=== PATIENT | female | born 1960 | race Caucasian/White ===

== ENCOUNTER 2018-01-03 15:08 | Outpatient (REF) | payer OTHER, SELFPAY ==
--- NOTE | 2018-01-03 15:00 | PAPFT_PTH ---
PATIENT: Shanna Etienne LOC: [place] U#:[id number] AGE/SX: 57/F ROOM: RE01/03/[address]: Dianna Lock : 1960 BED: DIS: 01/03/2018 SPEC #: [id number] RECD: 01/03/18 18:03 STATUS: CITLALI MORALES #: [id number] JENNIFER: 01/03/18 15:[address]: Dianna Lock DEPT: [facility] Cytology RECD BY: Talita Wynne ENTERED: 01/03/18 18:03 SP TYPE: PAPFT OTHR DR: Heather Tam Tissues: 1 - CX/ENDOCX FOR PAP SMEARS Procedures: PAP THIN PREP/[facility] Screening HPV DNA PROBE Comments: [id number]
== END 2018-01-03 15:28 ==
LOC: LBN 15:08
PROVIDERS: PCP Obstetrics & Gynecology; Visit Provider Obstetrics & Gynecology Gynecology
DX: Z12.4 Encounter for screening for malignant neoplasm of cervix (principal); Z11.51 Encounter for screening for human papillomavirus (HPV)
CPT/HCPCS: 88142; 87624

== ENCOUNTER 2023-12-31 11:20 | Outpatient (REF) | payer MEDICARE, OTHER, SELFPAY ==
--- NOTE | 2023-12-31 08:45 | PAPFT_PTH ---
PATIENT: Shanna Etienne LOC: [facility] U#:[id number] AGE/SX: 63/F ROOM: RE12/31/[address]: Dianna Lock : 1960 BED: DIS: 12/31/2023 SPEC #: [id number] RECD: 12/31/23 13:23 STATUS: CITLALI REQ #: [id number] JENNIFER: 12/31/23 08:[address]: Dianna Lock DEPT: [facility] Cytology RECD BY: Talita Wynne ENTERED: 12/31/23 13:23 SP TYPE: PAPFT OTHR DR: Heather Tam Tissues: 1 - CX/ENDOCX FOR PAP SMEARS Procedures: PAP THIN PREP/UVM Screening HPV DNA PROBE Comments: [id number] (HPV 16 & 18/45)
== END 2023-12-31 11:21 | disposition home or self-care (01) ==
LOC: LBN 11:20
PROVIDERS: PCP Obstetrics & Gynecology; Visit Provider Obstetrics & Gynecology Gynecology
DX: Z12.4 Encounter for screening for malignant neoplasm of cervix (principal)
CPT/HCPCS: 88142; 87624

== ENCOUNTER 2024-08-22 02:30 | Outpatient (CLI) | payer MEDICARE, OTHER, SELFPAY ==
[2024-08-22 09:40] LABS: Abs Immature Grans 0.02 10^3/uL (0.0-0.06); Absolute Basophil Count 0.03 10^3/uL (0.0-0.2); Absolute Eosinophil Count 0.19 10^3/uL (0.0-0.7); Absolute Lymphocyte Count 2.17 10^3/uL (1.2-3.4); Absolute Monocyte Count 0.64 10^3/uL (0.1-0.8); Absolute Neutrophil Count 3.16 10^3/uL (1.2-6.7); Basophils % 0.5 %; Eosinophils % 3.1 %; HCT 42.9 % (36.0-46.0); HGB 14.2 g/dL (11.2-15.7); Immature Grans % 0.3 %; Lymphocytes % 34.9 %; MCH 31.4 pg (27.0-33.0); MCHC 33.1 % (32.0-36.0); MCV 95 fL (80-95); MPV 9.1 fL (8.0-11.0); Monocytes % 10.3 %; Neutrophils % 50.9 %; Platelet Count 249 10^3/uL (130-400); RBC 4.52 10^6/uL (3.93-5.22); RDW 12.5 % (11.7-14.6); RDW-SD 43.6 fL; WBC 6.21 10^3/uL (4.4-10.8)
== END 2024-08-22 02:31 | disposition home or self-care (01) ==
LOC: LBO 02:30
PROVIDERS: PCP Family Medicine; Visit Provider Obstetrics & Gynecology
DX: Z01.818 Encounter for other preprocedural examination (principal)
CPT/HCPCS: 36415; 86850; 86900; 86901; 85025

== ENCOUNTER 2024-08-23 08:50 | Day surgery (SDC) | payer MEDICARE, OTHER, SELFPAY ==
[2024-08-23 09:06] VITALS: BP 125/57; PULSE 58; RESP 16; TEMP 36.2; O2SAT 98
[2024-08-23] MEDS: Lactated Ringers 1,000 ML 125 ML IV (09:22)
--- NOTE | 2024-08-23 10:11 | NUR.NOTE ---
Nursing Note: 1010: This nurse (Joselo Gilliland RN) checked on patient as she had been waiting to go over to the OR for awhile, patient appears to be sleeping, respirations WNL. Call zayas is at bedside.
--- NOTE | 2024-08-23 10:49 | W.ANESPRE ---
General Info Date of Service Date Performed: 08/23/24 Height: 5 ft 7 in Weight: 62.3 kg Body Mass Index (BMI): 21.4 Surgical Procedure: Operation Date: 08/23/24 11:40 Proposed Procedure Side Surgeon p Dilation & Curettage with Hysteroscopy, Exam Under Anesthesia, Cervical Biopsies Ora Florez DO Meds Allergies and Home Medications Allergies Allergy/AdvReac Type Severity Reaction Status Date / Time Iodinated Contrast Media Allergy Severe Anaphylaxis Verified 08/23/24 09:11 Home Medication ?Medication ?Instructions ?Recorded multivitamin (Daily Multi-Vitamin 1 ea PO DAILY 02/06/13 tablet) psyllium husk 0.52 gram capsule 0.52 gm PO DAILY 02/06/13 cholecalciferol (vitamin D3) 125 5,000 unit PO DAILY 07/31/13 mcg (5,000 unit) tablet ascorbic acid (vitamin C) 500 mg 500 mg PO DAILY 05/10/17 tablet (Vitamin C) calcium ER 600 mg (as carb,cit)-D3 1 ea PO DAILY 05/10/17 12.5 mcg (500 unit) tablet, ext.rel Current Visit Medications: Current Medications Generic Name Dose Route Start Last Admin Trade Name Freq PRN Reason Stop Dose Admin Ringer's Solution 1,000 mls @ 125 mls/hr 08/23/24 06:00 08/23/24 09:22 IV 08/23/24 23:59 125 mls/hr INFUSION ASHUTOSH Administration IV Miscellaneous Supplies 1 each 08/23/24 06:00 Iv Access IV 08/23/24 23:59 DIRECTED ASHUTOSH Sodium Chloride 0 ml 08/23/24 06:00 Normal Saline Flush 10 Ml Syr IV 08/23/24 23:59 PRN PRN Sodium Chloride 0 ml 08/23/24 06:00 Normal Saline 10 Ml Vial IJ 08/23/24 23:59 DIRECTED PRN Sterile Water 0 ml 08/23/24 06:00 Water,Injection,Sterile 10 Ml Vial IJ 08/23/24 23:59 DIRECTED PRN PFSH Active Problems Active Problems: Problem Status Onset Code Abnormal ultrasound Acute R93.89 HPV (human papilloma virus) infection Acute B97.7 Postmenopausal vaginal bleeding Acute 07/03/15 N95.0 WILMAR III (cervical intraepithelial neoplasia grade III) with severe dysplasia Acute 07/06/16 D06.9 WILMAR III (cervical intraepithelial neoplasia III) Acute 04/05/13 D06.9 Atrophy of vagina Acute 07/03/15 N95.2 Medical History Medical History Hx of abnormal cervical Pap smear 2014 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 Nl paps/HPV since. Reactive airways dysfunction syndrome Osteopenia Palpitations Pt. denies this Surgical History Surgical History S/P LEEP (loop electrosurgical excision procedure) 2014. CIN3. nl paps\HPV since. Tobacco Smoking/Tobacco Use Status: Never Passive smoking exposure: No Alcohol Alcohol Intake: never Details: Rare social alcohol Substance Use Substance use: Never Substance use type: does not use Prental History History 4 Para 3 Hx # Term Pregnancies Multiple births Hx # Pregnancies Ectopic pregnancies AB induced Hx Number of Living Children 3 AB spontaneous 1 Vital Signs and Lab Results Vital Signs Most Recent Vital Signs in EMR: Most Recent Vital Signs Temp Pulse Resp BP Pulse Ox 36.2 C L 58 L 16 125/57 L 98 08/23/24 09:06 08/23/24 09:06 08/23/24 09:06 08/23/24 09:06 08/23/24 09:06 Lab Results Blood Type / Crossmatch: Antibody Screen NEGATIVE 08/22/24 Complete Blood Count: White Blood Count 6.21 10^3/uL (4.4-10.8) 08/22/24 08:50 Red Blood Count 4.52 10^6/uL (3.93-5.22) 08/22/24 08:50 Hemoglobin 14.2 g/dL (11.2-15.7) 08/22/24 08:50 Hematocrit 42.9 % (36.0-46.0) 08/22/24 08:50 Platelet Count 249 10^3/uL (130-400) 08/22/24 08:50 Complete Metabolic Panel: No Data to Display Liver Function Panel: No Data to Display Coagulation Panel: No Data to Display Cardiac Panel: No Data to Display Arterial Blood Gas: No Data to Display Venous Blood Gas: No Data to Display Pancreas Panel: No Data to Display Thyroid Panel: No Data to Display Infectious Disease: No Data to Display Blood Cultures: No Data to Display Toxicology Panel: No Data to Display Anesthesia Assessment and Plan Anesthesia History Personal History: No History of Anesthesia Complications Family History: No Family History of Anesthesia Complications Exercise Tolerance Exercise Tolerance: Metabolic Equivalents>4 Pertinent Negatives Pertinent Negatives: No Symptoms of GERD, No Major Cardiovascular Symptoms or Complaints and No Major Pulmonary Symptoms or Complaints Cardiac & Pulmonary Exam Cardiac Exam: Normal S1/S2 Heart Sounds Pulmonary Exam: Clear Bilateral Breath Sounds Implantable Cardiac Device Does patient have a Pacemaker or an ICD?: No Airway Exam Known Difficult Airway: No Mallampati Class: 2 Mouth Opening: Normal (> 3cm) Thyromental Distance: Greater than 3 cm Neck Range of Motion: Full ROM Neck Circumference: Normal Teeth Condition: Normal Dentition ASA Classification ASA Score: ASA 2 Emergency Case?: No NPO Status NPO Status: NPO Clears >2 hours, Solids >8 hours Anesthesia Plan Resuscitation Status: Full Code Anesthesia Technique: General Anesthesia Airway Planned: Natural Airway Monitors Used: Standard Monitors
[2024-08-23 11:14] VITALS: BMI 21.4
--- NOTE | 2024-08-23 11:30 | PAPFT_PTH ---
PATIENT: Shanna Etienne LOC: [facility] U#:[id number] AGE/SX: 64/F ROOM: RE08/23/[address]: Ora Florez DO : 1960 BED: DIS: 08/23/2024 SPEC #: [id number] RECD: 08/23/24 13:06 STATUS: CITLALI REQ #: [id number] JENNIFER: 08/23/24 11:[address]: Ora Florez DEPT: [facility] Cytology RECD BY: Talita Wynne ENTERED: 08/23/24 13:06 SP TYPE: PAPFT OTHR DR: Liz Pickard Tissues: 1 - CX/ENDOCX FOR PAP SMEARS Procedures: PAP THIN PREP/UVM Screening HPV DNA PROBE Comments: [id number] (HPV 16 & 18/45)
--- NOTE | 2024-08-23 12:03 | ENDO_PTH ---
PATIENT: Shanna Etienne LOC: [facility] U#:[id number] AGE/SX: 64/F ROOM: RE08/23/[address]: Ora Florez DO : 1960 BED: DIS: 08/23/2024 SPEC #: [id number] RECD: 08/23/24 13:02 STATUS: CITLALI RE #: [id number] JENNIFER: 08/23/24 12:[address]: Ora Florez DEPT: Surgical Specimen RECD BY: Talita Wynne ENTERED: 08/23/24 13:03 SP TYPE: Endo OTHR DR: Liz Pickard Tissues: 1 - ENDOCERVICAL BX/CURRETTE 2 - ENDOMETRIUM BX/CURRETTE 3 - CERVICAL BIOPSY Procedures: GROSS AND MICRO LEVEL 4 Comments: [id number]
[2024-08-23] MEDS: Silver Nitrate Stick 1 EACH (12:11)
[2024-08-23 12:24] VITALS: BP 101/65; PULSE 48; RESP 14; TEMP 36.1; O2SAT 97
--- NOTE | 2024-08-23 12:25 | W.PM.OP ---
Operative Note Operative Note PRE-OP DIAGNOSIS: Persistent positive HPV, postmenopausal bleeding, irregular cervix POST-OP DIAGNOSIS: same PROCEDURE: Exam under anesthesia, Pap smear, fractional dilation and curettage, hysteroscopy, cervical biopsy at 12:00 SURGEON: Ora Florez ANESTHESIA TYPE: General:No Airway Refer to Anesthesia Record ESTIMATED BLOOD LOSS: 5 PATHOLOGY: other (1. Pap smear 2. Endocervical curettage 3. Endometrial curettage 4. Cervical biopsy at 12:00) COMPLICATIONS: None Patient was transported to: same day Patient's condition: stable Indications: Postmenopausal bleeding, irregular cervix on ultrasound, persistent positive high risk HPV Findings: Cervical stenosis, evidence of previously procedure. Uterus that is small, midline, mobile with a maximum dimension of approximately 2 x 5 cm. Endometrium, smooth, regular, both tubal ostia visualized. Endocervical canal, somewhat shaggy and irregular with papillary excrescences. Procedure Description: After full informed consent was obtained, patient was taken the operating suite. She is placed in the dorsal supine position and she self positioned in her yellowfin stirrups to assure back comfort during the procedure. She received anesthesia via monitored anesthesia care. Exam under anesthesia performed confirmed a uterus that is small, midline, mobile, maximum dimension 2 x 5 cm. Cervix was without evidence of thickening or parametrial induration. A Pap smear was obtained. Cervical os was stenotic. At this point, the patient was prepped and draped in the usual sterile fashion. A single-tooth tenaculum was used to grasp the anterior lip of the cervix and the cervical os dilated to the point that a 4 mm hysteroscope could be passed without difficulty. With instillation of normal saline, the endometrial cavity and endocervical canal were inspected. The endometrial cavity itself was smooth, regular, atrophic appearing with normal visualization of the tubal ostia. With withdrawal of the hysteroscope, the endocervical canal appeared somewhat shaggy, irregular with papillations. At this point, fractional dilation and curettage was performed with aggressive curettage of the endocervix, followed by curettage of the endometrium. Tissue from the endocervix was modest, endometrial curettage produced scant tissue. This completed the hysteroscopy with fractional dilation and curettage and fluid deficit was 15 mL of normal saline. At this point, cervical biopsy at the 12 o'clock position was performed with a cup biopsy instrument and the base cauterized with silver nitrate. Completed the procedure at this point, the patient was returned to the dorsal supine position and awoke from anesthesia without difficulty. She was taken to the same-day surgical area in stable condition. EBL: 5 mL Fluids: Crystalloid per anesthesia +15 mm of normal saline deficit via hysteroscope. Pathology: 1. Pap smear 2. Endocervical curettage 3. Endometrial curettage 4. Cervical biopsy at 12:00. Complications: None apparent Date of Procedure: 08/23/24
[2024-08-23 13:03] VITALS: BP 112/57; PULSE 62; RESP 16; TEMP 36.2; O2SAT 100
--- NOTE | 2024-08-23 13:05 | W.ANESPOSTOP ---
Postoperative Evaluation Date, Time and Location Date Performed: 08/23/24 Time Performed: 13:05 Patient Location: Day Surgery Unit Vital Signs Most Recent Imported Vital Signs: Most Recent Vital Signs Temp Pulse Resp BP Pulse Ox 36.1 C L 48 L 14 101/65 97 08/23/24 12:24 08/23/24 12:24 08/23/24 12:24 08/23/24 12:24 08/23/24 12:24 Pain Score Most Recent Pain Score: Most Recent Pain Score Pain Level 0 08/23/24 12:24 Assessment Mental Status: Awake (Alert & Oriented to Patient Baseline) Airway and Respiratory Function: Patent airway with normal (patient baseline) respiratory exam Cardiovascular Function: Hemodynamically Stable Hydration Status: Adequately Hydrated Nausea & Vomiting: No Nausea or Vomiting Pain: Pt. Denies Any Pain Peripheral Nerve Block: Patient did not receive a nerve block
== END 2024-08-23 13:17 | disposition home or self-care (01) ==
PROVIDERS: PCP Family Medicine; Visit Provider Obstetrics & Gynecology
PROC: 0UDB8ZZ Extraction of Endometrium, Via Natural or Artificial Opening Endoscopic (ICD-10-PCS; CPT 58558; principal; 2024-08-23 11:30)
DX: N95.0 Postmenopausal bleeding (principal); N88.8 Other specified noninflammatory disorders of cervix uteri; R87.810 Cervical high risk human papillomavirus (HPV) DNA test positive; B97.7 Papillomavirus as the cause of diseases classified elsewhere
CPT/HCPCS: 58558; 57500; 88142; 88305; 87624; J1100; J1885; J2003; J2405; J2704; J3010